=== PATIENT | male | born 1985 | race Caucasian/White ===

== ENCOUNTER 2017-01-28 18:16 | Emergency (ER) | payer MEDICAID ==
[~2017-01-28 18:16] MED LIST: ATARAX PO; BENADRYL25 MG PO; EPIPEN0.3 MG/0.1 IM; MEDROL4 MG/DOSE- PO; PREDNISONE PO
== END 2017-01-28 20:30 | disposition home or self-care (01) ==
LOC: CED 18:16
DX: T63.441A Toxic effect of venom of bees, accidental (unintentional), initial encounter (principal); F41.8 Other specified anxiety disorders; F17.210 Nicotine dependence, cigarettes, uncomplicated; Z88.0 Allergy status to penicillin
CPT/HCPCS: 36415; 96361; 96374; 96375; 99283; J1200; J2930